=== PATIENT | female | born 1945 | race Caucasian/White ===

== ENCOUNTER 2018-12-24 16:32 | Emergency (ER) | payer MEDICARE, OTHER ==
[~2018-12-24] VITALS: Wt 80.0 kg
[2018-12-24] MEDS ORDERED: ONDANSETRON 4 MG INJ IV STA (17:10)
[2018-12-24] MEDS ORDERED: morphine 4 MG/ML VIAL IV STA (17:10)
[2018-12-24] MEDS ORDERED: NITR0.4T32 SL (18:00)
[2018-12-24] MEDS ORDERED: CARV6.2579 PO (18:00)
[2018-12-24] MEDS ORDERED: LIPA1CAP6 PO (18:00)
[2018-12-24] MEDS ORDERED: EZET10TA31 PO (18:01)
[2018-12-24] MEDS ORDERED: CLON-379 PO (18:01)
[2018-12-24] MEDS ORDERED: OMEP1CAP24 PO (18:02)
[2018-12-24] MEDS ORDERED: [UNRECOGNIZED DRUG - CODE] PO (18:03)
[2018-12-24] MEDS ORDERED: FER325 PO (18:03)
[2018-12-24] MEDS ORDERED: NITR-58 PO (18:21)
[2018-12-24] MEDS ORDERED: IBUP-1542 PO (18:21)
[2018-12-24] MEDS ORDERED: ONDA4TAB14 PO (18:21)
[2018-12-24] MEDS ORDERED: HYDR-3980 PO (18:25)
[2018-12-24] MEDS ORDERED: NALO4SPR NS (18:25)
[2018-12-24] MEDS ORDERED: NITROFURANTOIN (SR) 100 MG CAP PO ONE (18:30)
--- NOTE | 2018-12-24 18:34 | ERD ---
ER Documentation Chief Complaint Chief Complaint RIGHT UPPER ABD PAIN FOR THE MONTH, NAUSEA AND VOMITING. AND DIARRHEA HPI Patient is a 73-year-old female with hypertension and arrhythmia who presents with abdominal pain. The patient has right upper quadrant abdominal pain. The pain has been there for 1 month but it is worse today. The patient had nausea and diarrhea. She denies fevers. She took a [place] for pain. Upon review of old medical records this is the patient's first visit to the emergency department. She says that her primary doctor is Dr. Matty Tucker. ROS All systems reviewed and are negative except as per history of present illness. Medications Home Meds Active Scripts Naloxone HCl nasal spray (Narcan 4 mg/0.1 mL nasal) 4 Mg [place], 4 MG NS .Q2-3MIN for OPIOID OVERDOSE, #2 SPRAY 0 Refills [place] 0.1 mL into one nostril. Repeat with second device into other nostril after 2-3 minutes if no or minimal response Prov:JAHAIRA SORENSON MD 12/24/18 Hydrocodone/Acetaminophen ([place] 10-325 Tablet) 1 Each Tablet, 1 TAB PO Q6H PRN for PAIN, #6 TAB Prov:JAHAIRA SORENSON MD 12/24/18 Ondansetron (Ondansetron Odt) 4 Mg Tab.rapdis, 4 MG PO Q6H PRN for NAUSEA AND/OR VOMITING, #10 TAB Prov:JAHAIRA SORENSON MD 12/24/18 Ibuprofen* (Motrin*) 600 Mg Tab, 600 MG PO Q6H PRN for PAIN AND OR ELEVATED TEMP, #30 TAB Prov:JAHAIRA SORENSON MD 12/24/18 Nitrofurantoin Monohyd Macrocr* (Macrobid*) 100 Mg Capsr, 100 MG PO BID for 7 Days, CAP Prov:JAHAIRA SORENSON MD 12/24/18 Reported Medications Ferrous Sulfate* (Ferrous Sulfate*) 325 Mg [place], 325 MG PO DAILY, TAB 12/24/18 Ubidecarenone (Coenzyme Q10) 200 Mg Capsule, 200 MG PO DAILY, CAP 12/24/18 Omeprazole/Sodium Bicarbonate (OMEPRAZOLE-BICARB 40-1,100 CAP) 1 Each Capsule, 1 CAP PO DAILY, #30 CAP 12/24/18 Ezetimibe* (Zetia*) 10 Mg Tablet, 10 MG PO HS, TAB 12/24/18 Clonidine Hcl* (Clonidine Hcl*) 0.1 Mg Tab, 0.1 MG PO NEEDED, TAB 12/24/18 Carvedilol* (Carvedilol*) 6.25 Mg Tablet, 6.25 MG PO BID, #60 TAB 12/24/18 Nitroglycerin* (Nitroglycerin* SL) 0.4 Mg Tab.subl, 0.4 MG SL Q5MIN PRN for CHEST PAIN, BOTTLE 12/24/18 Zjioeb-Yiuilvqq-Lmtjogh* (Creon DR* 24,000) 24,000 L-76,000-120,000 Unit Capsule.dr, 1 CAP PO WITH MEALS, CAP 12/24/18 Allergies Allergies: Coded Allergies: No Known Allergy (Unverified , 12/24/18) PMhx/Soc History of Surgery: No Anesthesia Reaction: No Hx Neurological Disorder: No Hx Respiratory Disorders: No Hx Cardiac Disorders: Yes (Arrythmia, HTN) Hx Psychiatric Problems: No Hx Miscellaneous Medical Probl: No Hx Alcohol Use: No Hx Substance Use: No Hx Tobacco Use: No Smoking Status: Never smoker FmHx Family History: No diabetes Physical Exam Vitals Vital Signs Date Temp Pulse Resp B/P (MAP) Pulse Ox O2 O2 Flow FiO2 Time Delivery Rate 12/24/18 98.5 72 18 137/66 98 Room Air 17:10 (89) 12/24/18 98.5 76 18 137/66 98 16:42 (89) Physical Exam Const: No acute distress Head: Atraumatic Eyes: Normal Conjunctiva ENT: Normal External Ears, Nose and Mouth. Neck: Full range of motion. No meningismus. Resp: Clear to auscultation bilaterally Cardio: Regular rate and rhythm, no murmurs Abd: Soft, right upper quadrant and right lower quadrant tenderness to palpation without rebound or guarding Skin: No petechiae or rashes Back: No midline or flank tenderness Ext: No cyanosis, or edema Neur: Awake and alert Psych: Normal Mood and Affect Result Diagram: 12/24/18 1738 12/24/18 1738 Results 24 hrs Laboratory Tests Test 12/24/18 17:38 White Blood Count 8.0 10^3/ul Red Blood Count 4.06 10^6/ul Hemoglobin 12.0 g/dl Hematocrit 37.3 % Mean Corpuscular Volume 91.9 fl Mean Corpuscular Hemoglobin 29.6 pg Mean Corpuscular Hemoglobin Concent 32.2 g/dl Red Cell Distribution Width 13.6 % Platelet Count 399 10^3/UL Mean Platelet Volume 8.5 fl Immature Granulocytes % 0.200 % Neutrophils % 58.6 % Lymphocytes % 32.5 % Monocytes % 5.4 % Eosinophils % 2.2 % Basophils % 1.1 % Nucleated Red Blood Cells % 0.0 /100WBC Immature Granulocytes # 0.020 10^3/ul Neutrophils # 4.7 10^3/ul Lymphocytes # 2.6 10^3/ul Monocytes # 0.4 10^3/ul Eosinophils # 0.2 10^3/ul Basophils # 0.1 10^3/ul Nucleated Red Blood Cells # 0.0 10^3/ul Urine Color YELLOW Urine Clarity CLOUDY Urine pH 5.0 Urine Specific [place] 1.026 Urine Ketones NEGATIVE mg/dL Urine Nitrite NEGATIVE mg/dL Urine Bilirubin NEGATIVE mg/dL Urine Urobilinogen NEGATIVE mg/dL Urine Leukocyte Esterase 1+ Kal[place]/ul Urine Microscopic RBC 3 /HPF Urine Microscopic WBC 10 /HPF Urine Squamous Epithelial Cells MANY /HPF Urine Bacteria FEW /HPF Urine Mucus FEW /HPF Urine Hemoglobin NEGATIVE mg/dL Urine Glucose NEGATIVE mg/dL Urine Total Protein 1+ mg/dl Sodium Level 143 mmol/L Potassium Level 4.2 mmol/L Chloride Level 109 mmol/L Carbon Dioxide Level 25 mmol/L Anion Gap 9 Blood Urea Nitrogen 16 mg/dl Creatinine 0.76 mg/dl Est Glomerular Filtrat Rate mL/min mL/min Glucose Level 117 mg/dl Calcium Level 8.7 mg/dl Total Bilirubin 0.2 mg/dl Direct Bilirubin 0.00 mg/dl Indirect Bilirubin 0.2 mg/dl Aspartate Amino Transf (AST/SGOT) 20 IU/L Alanine Aminotransferase (ALT/SGPT) 27 IU/L Alkaline Phosphatase 70 IU/L Total Protein 7.5 g/dl Albumin 4.1 g/dl Globulin 3.40 g/dl Albumin/Globulin Ratio 1.20 Lipase 132 U/L Current Medications Medications Dose Sig/Liz Start Time Status Last (Trade) Ordered Route PRN Stop Time Admin Dose Reason Admin Morphine 4 mg ONCE STAT 12/24/18 DC 12/24/18 Sulfate IV 17:10 17:42 (morphine) 12/24/18 17:30 Ondansetron 4 mg ONCE STAT 12/24/18 DC 12/24/18 HCl (Zofran IV 17:10 17:42 Inj) 12/24/18 17:30 100 mg ONCE ONCE 12/24/18 DC Nitrofurantoi PO 18:30 n 12/24/18 18:31 Macrocrystals (Macrobid) Procedures/MDM CT abdomen pelvis read by radiology. Ultrasound the gallbladder read by radiology. Patient is a 73-year-old female who presents with abdominal pain. The patient has basically normal laboratory studies. She was found to have acute cystitis. CT scan shows no signs of obstruction or appendicitis. Ultrasound shows no obvious signs of cholecystitis. At this point I believe outpatient management is appropriate but the patient will need close follow-up with her primary doctor within 24 to 48 hours. The patient will be given Macrobid for 1 week course. The patient will be given a short course of [place] and Zofran as well as Narcan. The patient can return for any worsening symptoms. Patient was provided with laboratory studies and imaging test results prior to discharge. Departure Diagnosis: Primary Impression: Cystitis Additional Impression: Abdominal pain Abdominal location: unspecified location Qualified Codes: R10.9 - Unspecified abdominal pain Condition: Fair Patient Instructions: Abdominal Pain, Cystitis Referrals: Dr. Matty Tucker Additional Instructions: Call your primary care doctor TOMORROW for an appointment during the next 1-2 days.See the doctor sooner or return here if your condition worsens before your appointment time. JAHAIRA SORENSON MD Dec 24, 2018 18:34
[2018-12-24 19:26] VITALS: BP 118/77; PULSE 73; RESP 18
== END 2018-12-24 19:45 | disposition home or self-care (01) ==
LOC: E/R 16:32
DX: R10.11 Right upper quadrant pain (principal); N30.90 Cystitis, unspecified without hematuria
CPT/HCPCS: 74176; 76705; 80053; 81001; 83690; 85025; J2270; J2405; 36415; 96374; 96375